=== PATIENT | female | born 1985 | race Caucasian/White ===

== ENCOUNTER → 2020-05-24 | Day surgery (SDC) | payer BC ==
[~2020-05-24] MED LIST: ACETAMINOPHEN/CODEINE 300MG - 30MG TAB ONE; BUPIVACAINE 0.25% 30ML SDV ONE; CEFAZOLIN SOD 1 GM/NS 50ML 100 ML IV ONE; ESIDRIX25 MG PO; OMEPRAZOLE40 MG PO; ONDANSETRON HCL INJ 2MG/ML 2ML 2 MG/ML VIAL ONE; ZYRTEC-D TABLE1 EACH PO
[2020-05-24 12:49] LABS: ANION GAP 14.5 mmol/L (8-16); BLOOD UREA NITROGEN 10 mg/dL (7-26); BUN/CREATININE RATIO 14 (6-25); CALCIUM 9.3 mg/dL (8.4-10.2); CARBON DIOXIDE 27 mmol/L (22-29); CHLORIDE 102 mmol/L (98-107); CREATININE, SERUM 0.74 mg/dL (0.57-1.11); EST GLOMERULAR FILTRATION RATE > 60 ML/MIN (60-); GLUCOSE 92 mg/dL (74-118); POTASSIUM 3.5 mmol/L (3.5-5.1); SODIUM 140 mmol/L (136-145)
[2020-05-24 15:30] VITALS: BP 134/82
--- NOTE | 2020-05-24 15:33 | Operative Report ---
DATE OF PROCEDURE: 05/24/2020 SURGEON: Piyush Bragg MD PREOPERATIVE DIAGNOSES: 1. Chronic gastroesophageal reflux disease. 2. Hiatal hernia. POSTOPERATIVE DIAGNOSES: 1. Paraesophageal hernia. 2. Chronic gastroesophageal reflux disease. PREOPERATIVE INDICATION: Treat disease, prevent complications related to paraesophageal hernia and reflux disease. PROCEDURES: Laparoscopic paraesophageal hernia repair with Toupet fundoplication (CPT 87258). ANESTHESIA: General. [employer] OPERATOR: Navjot Rios, operating room surgical technician (needed due to complexity of case). FLUIDS: As per Anesthesia. ESTIMATED BLOOD LOSS: 10 mL. DRAINS: None. COMPLICATIONS: None. SPECIMENS: None. GRAFTS: None. FINDINGS: Moderate-sized paraesophageal hernia. PROCEDURE IN DETAIL: The patient was brought to the operating room and was intubated under general endotracheal anesthesia. She was sterilely prepped and draped in the usual fashion. A preprocedure pause was performed identifying the patient, use of perioperative antibiotics, intended procedure, and staff surgeon. Access was gained via a 5 mm left subcostal incision using a Veress needle. The abdomen was insufflated. Four additional trocars were placed in the standard positions. A liver retractor was placed to expose the hiatus. I incised the gastrohepatic ligament via the pars flaccida technique using the Harmonic scalpel. There was a replaced left hepatic artery, which was ligated using Harmonic scalpel. I then identified a moderate-sized paraesophageal hernia with the fundus being herniated through the defect into the thoracic cavity. I spent a great deal of time dissecting out the hernia until I was able to free it up from the right and left chris of the diaphragm as well as anteriorly and posteriorly from the chris. I was able to obtain about 3 cm of intra-abdominal esophageal length. Once that was complete, I then repaired the hiatus with 0 Surgidac suture using the Endo Stitch device in an interrupted fashion. I then performed a Toupet, 270-degree, fundoplication by suturing either end of the fundus to the anterior surface of the esophagus in order to complete our fundoplication. This was done over length of about 3 cm. I placed a posterior fundic stitch and attaches to the posterior chris in order to prevent reherniation of the stomach. Once that was completed, we then verified hemostasis and removed the liver retractor. We then closed the large port site with 0 Vicryl suture using a Rolando-López technique. We then desufflated the abdomen and removed the trocars. Incision sites were closed with 4-0 Monocryl suture in a subcuticular fashion. Dermabond dressings were applied. A 0.25% bupivacaine was used both at the preperitoneal incision site. The patient tolerated the procedure well. Type of wound was type 1, clean. All surgical sponge and instrument counts were correct. Piyush Bragg MD Claudia/MARIELENAL /[id number]
== END | disposition home or self-care (01) ==
LOC: OR 11:57
PROVIDERS: ATTEND Surgery
DX: K44.9 Diaphragmatic hernia without obstruction or gangrene (principal); K21.9 Gastro-esophageal reflux disease without esophagitis; J30.2 Other seasonal allergic rhinitis
CPT/HCPCS: 36415; 43281; 80048; 81025; J0690; J2405